=== PATIENT | male | born 1985 | race Hispanic/Latino ===

== ENCOUNTER 2018-11-07 20:02 | Emergency (ER) | payer BC ==
[2018-11-07 21:14] VITALS: BMI 31.1
[2018-11-07 22:25] VITALS: RESP 18
[2018-11-07] MEDS ORDERED: Lidocaine PF 2% (5 ml) Inj (For Cardiac Arrhy) IJ STA (23:04)
[2018-11-07] MEDS ORDERED: Lidocaine PF 2% (5 ml) Inj (For Cardiac Arrhy) ONE (23:21)
[2018-11-07] MEDS ORDERED: TDAP Vaccine 0.5 mL Syr IM ONE (23:43)
--- NOTE | 2018-11-08 00:03 | ED PDOC ---
Arrival/HPI <Moises Terrell - Last Filed: 11/08/18 00:25> - General Historian: Patient - History of Present Illness Narrative History of Present Illness (Text): 11/08/18 01:04 33-year-old male presents today with a laceration to the left fourth finger status post injury. Patient states he was cutting a bagel around 7:30 PM and sustained a laceration to the distal tip of the finger. Patient denies numbness weakness or tingling in the extremity. Patient denies limited range of motion of the finger. Patient is unsure of his last tetanus shot. No medications have been taken at home. No other complaints. 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 testicle removal - Anesthesia Hx Anesthesia: Yes Hx Anesthesia Reactions: No Hx Malignant Hyperthermia: No <Caitlyn Lao - Last Filed: 11/08/18 01:07> Family/Social History - Physician Review Nursing Documentation Reviewed: Yes Family/Social History: Unknown Family HX Smoking Status: Light Smoker < 10 Cigarettes Daily Hx Alcohol Use: Yes Frequency of alcohol use: Socially Hx Substance Use: No <Caitlyn Lao - Last Filed: 11/08/18 01:07> Allergies/Home Meds <Moises Terrell - Last Filed: 11/08/18 00:25> <Caitlyn Lao - Last Filed: 11/08/18 01:07> Allergies/Adverse Reactions: Allergies No Known Allergies Allergy (Verified 11/07/18 21:14) Review of Systems - Review of Systems Constitutional: absent: Fatigue, Fevers Respiratory: absent: SOB, Cough Cardiovascular: absent: Chest Pain, Palpitations Gastrointestinal: absent: Abdominal Pain, Nausea, Vomiting Musculoskeletal: Arthralgias Skin: Laceration Neurological: absent: Headache <Caitlyn Lao - Last Filed: 11/08/18 01:07> Physical Exam Vital Signs Pulse Resp BP Pulse Ox 11/07/18 22:25 86 18 141/80 98 <Moises Terrell - Last Filed: 11/08/18 00:25> Vital Signs Reviewed: Yes Vital Signs Pulse Resp BP Pulse Ox 11/07/18 22:25 86 18 141/80 98 Temperature: Afebrile Blood Pressure: Normal Pulse: Regular Respiratory Rate: Normal Appearance: Positive for: Well-Appearing, Non-Toxic, Comfortable Pain Distress: None Mental Status: Positive for: Alert and Oriented X 3 - Systems Exam Head: Present: Atraumatic Respiratory/Chest: Present: Clear to Auscultation Cardiovascular: Present: Regular Rate and Rhythm Upper Extremity: Present: Normal ROM, NORMAL PULSES, Neurovascularly Intact, Capillary Refill < 2s, Other (left fourth finger: There is 2.5 cm linear laceration across the volar aspect of the distal tip of the finger. No active bleeding. Full range of motion of the finger. Sensation and distal pulses intact. Cap refill less than 2). No: Tenderness, Swelling, Erythema, Deformity Neurological: Present: GCS=15 Skin: Present: Warm, Dry, Normal Color Psychiatric: Present: Alert, Oriented x 3 <Caitlyn Lao - Last Filed: 11/08/18 01:07> Medical Decision Making - Medication Orders Current Medication Orders: Discontinued Medications Cephalexin Monohydrate (Keflex) 500 mg PO STAT STA; Protocol Stop: 11/07/18 23:44 Lidocaine HCl (Lidocaine Hydrochloride Pf 2% 5 Ml) 3 ml IJ ONCE STA Stop: 11/07/18 23:05 Tetanus/Reduced Diphtheria/Acell Pertussis (Boostrix Vaccine Inj) 0.5 ml IM .ONCE ONE Stop: 11/07/18 23:44 <Moises Terrell - Last Filed: 11/08/18 00:25> ED Course and Treatment: 11/08/18 00:01 Patient is nontoxic well appearing in no distress. Vital signs are stable. Wound irrigated well with high pressure irrigation Tetanus updated Keflex by mouth Laceration repair: 5 sutures placed Bacitracin and dressing applied Patient was advised to keep the wound clean and dry, apply bacitracin twice daily. Advised to return immediately if signs of infection develop or return if any other concerning symptoms develop. advised return in 7-10 days for suture removal Patient verbalizes understanding of discharge instructions and need for immediate followup. Impression: Laceration, finger Motrin every 6 hours as needed for pain Keflex; 1 capsule 4 times daily x 5 days. Keep the wound clean and dry, apply bacitracin twice daily Return in 7-10 days for suture removal Return immediately if signs of infection develop: High fevers, increasing pain, redness, swelling, purulent discharge Follow up with the hand specialist within the next 2 days. Followup with primary care physician within the next 2 days Return if any other concerning symptoms develop - Medication Orders Current Medication Orders: Cephalexin Monohydrate (Keflex) 500 mg PO STAT STA; Protocol Stop: 11/07/18 23:44 Tetanus/Reduced Diphtheria/Acell Pertussis (Boostrix Vaccine Inj) 0.5 ml IM .ONCE ONE Stop: 11/07/18 23:44 Discontinued Medications Lidocaine HCl (Lidocaine Hydrochloride Pf 2% 5 Ml) 3 ml IJ ONCE STA Stop: 11/07/18 23:05 <Caitlyn Lao - Last Filed: 11/08/18 01:07> Procedure: Wound Repair - Procedure Procedure: Wound Repair: left 4th finger laceration - Consent Obtained Consent obtained: Verbal - Performed by Performed by: Mid-level Provider - Indications Indication(s):: Laceration - Location Finger:: Left, Ring (distal phalanx) Shape:: Linear Dimensions Length cm: 2.5cm Depth:: Epidermis - Anesthetic Technique Anesthetic Technique: Regional block (digital block;) Local/Regional Anesthetic:: Lidocaine 2% (3cc) - Wound Examination Wound Examination:: Other (NO nerve, vascular or tendon injury) - Debris Debris:: None - Irrigated Irrigated with ml of normal saline: copious amount of NS using high pressure irrigation - Complexity Complexity:: Simple (one layer) - Wound repair method Sutures:: #, Size (5.0), Type (nylon), Technique (interrupted) - Complications Complications: none - Patient tolerated procedure Patient Tolerated Procedure:: Well <Caitlyn Lao - Last Filed: 11/08/18 01:07> - PA / [employer] JOURNEY[employer] / Resident Statement / has reviewed & agrees with the documentation as recorded. / has examined the patient and agrees with the treatment plan. <Moises Terrell - Last Filed: 11/08/18 00:25> Disposition/Present on Arrival <Moises Terrell - Last Filed: 11/08/18 00:25> - Present on Arrival Any Indicators Present on Arrival: No History of DVT/PE: No History of Uncontrolled Diabetes: No Urinary Catheter: No History of Decub. Ulcer: No History Surgical Site Infection Following: None - Disposition Have Diagnosis and Disposition been Completed?: Yes Disposition Time: 23:00 Patient Plan: Discharge <Caitlyn Lao - Last Filed: 11/08/18 01:07> - Disposition Diagnosis: Laceration of finger Disposition: HOME/ ROUTINE Condition: GOOD Discharge Instructions (ExitCare): Laceration Repair Additional Instructions: Motrin every 6 hours as needed for pain Keflex; 1 capsule 4 times daily x 5 days. Keep the wound clean and dry, apply bacitracin twice daily Return in 7-10 days for suture removal Return immediately if signs of infection develop: High fevers, increasing pain, redness, swelling, purulent discharge Follow up with the hand specialist within the next 2 days. Followup with primary care physician within the next 2 days Return if any other concerning symptoms develop Prescriptions: Cephalexin [Keflex] 500 mg PO QID #20 capsule Referrals: Chun Craig MD [Staff Provider] - Follow up with primary Megan Jones MD [Non-Staff] - Follow up with primary Den Fairbanks MD [Staff Provider] - Follow up with primary Forms: [facility] (Vietnamese), WORK NOTE
[2018-11-08 00:29] VITALS: BP 139/76; PULSE 87; TEMP 97.7; O2SAT 100
== END 2018-11-08 00:29 | disposition home or self-care (01) ==
LOC: ED 20:02
DX: S61.215A Laceration without foreign body of left ring finger without damage to nail, initial encounter (principal); W45.8XXA Other foreign body or object entering through skin, initial encounter; F17.210 Nicotine dependence, cigarettes, uncomplicated; Z23 Encounter for immunization